=== PATIENT | female | born 1975 | race Hispanic/Latino ===

== ENCOUNTER 2023-09-27 21:31 | Emergency (ER) | payer BC ==
[~2023-09-27] VITALS: Ht 157.5 cm; Wt 70.3 kg
[2023-09-27] MEDS: DIAZEPAM 5 MG TABLET PO ONE (22:57)
[2023-09-27] MEDS: CLINDAMYCIN 150 MG CAP PO ONE (22:57)
[2023-09-27] MEDS: HYDROCODONE/ACETAMINOPHEN 5/325 MG TAB PO ONE (22:57)
[2023-09-27] MEDS ORDERED: CLIN-141 PO (23:36)
[2023-09-27] MEDS ORDERED: IBUP-2070 PO (23:36)
[2023-09-28] VITALS: BP 106/62; PULSE 72; RESP 16; O2SAT 98
== END 2023-09-28 00:01 | disposition home or self-care (01) ==
LOC: EDH 21:31
DX: K04.7 Periapical abscess without sinus (principal); R22.0 Localized swelling, mass and lump, head; Z90.49 Acquired absence of other specified parts of digestive tract